=== PATIENT | female | born 1975 | race Caucasian/White ===

== ENCOUNTER 2024-06-25 21:44 | Emergency (ER) | payer SELFPAY ==
[~2024-06-25] VITALS: Ht 172.7 cm; Wt 77.1 kg
[2024-06-25 22:37] VITALS: BP 131/72; TEMP 98.5
[2024-06-25] MEDS ORDERED: CEPH500T PO (22:47)
[2024-06-25 22:56] VITALS: O2SAT 100
== END 2024-06-25 22:57 | disposition home or self-care (01) ==
LOC: ER 21:50
DX: N39.0 Urinary tract infection, site not specified (principal)
CPT/HCPCS: 87086-TC